=== PATIENT | male | born 1995 | race Caucasian/White ===

== ENCOUNTER 2020-01-18 17:26 | Emergency (ER) | payer OTHER ==
[~2020-01-18] VITALS: Ht 175.3 cm; Wt 91.2 kg
[2020-01-18 17:44] VITALS: Ht 175.3 cm; Wt 91.2 kg
[2020-01-18 20:51] VITALS: BP 116/62
== END 2020-01-18 20:51 | disposition home or self-care (01) ==
LOC: ED 17:26
DX: N45.1 Epididymitis (principal); N39.0 Urinary tract infection, site not specified